=== PATIENT | female | born 1985 | race Caucasian/White ===

== ENCOUNTER 2016-06-20 18:25 | Emergency (ER) | payer SELFPAY ==
[~2016-06-20] VITALS: Ht 154.9 cm; Wt 68.0 kg
[~2016-06-20 18:25] MED LIST: ZOFR4TAB3 SL
[2016-06-20 18:53] VITALS: BP 133/80; PULSE 99; RESP 16; TEMP 98.4; O2SAT 98
[2016-06-20] MEDS ORDERED: SODIUM CHLORIDE 0.9% FLUSH 5 ML FLUSH IVF PRN (19:30)
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
[2016-06-20 20:00] LABS: AUTOMATED NEUTROPHIL # 5.4 TH/MM3 (1.8-7.7); BASOPHIL # 0.1 TH/MM3 (0-0.2); EOSINOPHIL # 0.2 TH/MM3 (0-0.4); HEMATOCRIT 38.2 % (35.0-46.0); HEMO FLAGS DIFF FINAL; LYMPH % 32.8 % (9.0-44.0); MEAN CELL VOLUME 84.5 FL (80.0-100.0); MEAN CORPUSCULAR HEMOGLOBIN 29.3 PG (27.0-34.0); MEAN CORPUSCULAR HGB CONC 34.6 % (32.0-36.0); MONO % 5.9 % (0.0-8.0); NEUT % 58.3 % (16.0-70.0); PLATELET COUNT 233 TH/MM3 (150-450); RED BLOOD COUNT 4.52 MIL/MM3 (4.00-5.30); WHITE BLOOD COUNT 9.2 TH/MM3 (4.0-11.0)
[2016-06-20 20:07] LABS: BACTERIA, URINE MOD /hpf; BLOOD, URINE NEG (NEG); COMMENT (UR) CULTURE INDICATED; CULTURE IF INDICATED CULTURE INDICATED; GLUCOSE,URINE NEG (NEG); HYALINE CAST, URINE 1 /lpf (RARE); KETONE, URINE TRACE mg/dL (NEG); MUCUS URINE MOD /lpf (OCC); NITRITE,URINE POS (NEG); SQUAMOUS EPITHELIAL CELL URINE 2 /hpf (0-5); URINE COLOR YELLOW (YELLW/STRAW)
[2016-06-20 20:08] LABS: AMPHETAMINE, URINE NEG (NEG); BARBITURATES, URINE NEG (NEG); COCAINE, URINE POS (NEG)
[2016-06-20 20:23] LABS: ANION GAP 9 MEQ/L (5-15)
[2016-06-20 20:28] LABS: ALKALINE PHOSPHATASE 83 U/L (45-117); ALT (GPT) 19 U/L (10-53); AST (GOT) 16 U/L (15-37); BETA HCG QUANT LESS THAN 1 MIU/ML (0-5); BICARBONATE 27.8 MEQ/L (21.0-32.0); BLOOD UREA NITROGEN 9 MG/DL (7-18); CHLORIDE 102 MEQ/L (98-107); GLOMERULAR FILTRATION RATE 97 ML/MIN (>89); POTASSIUM 3.6 MEQ/L (3.5-5.1); SODIUM (NA) 139 MEQ/L (136-145); TOTAL BILIRUBIN ADULT 0.6 MG/DL (0.2-1.0)
[2016-06-20 20:34] LABS: ACETAMINOPHEN LESS THAN 2.0 MCG/ML (10.0-30.0)
== END 2016-06-21 00:46 | disposition left against medical advice (07) ==
LOC: NEPC 18:25
DX: T40.5X1A Poisoning by cocaine, accidental (unintentional), initial encounter (principal); T42.4X1A Poisoning by benzodiazepines, accidental (unintentional), initial encounter; R11.0 Nausea; N39.0 Urinary tract infection, site not specified; B96.20 Unspecified Escherichia coli [E. coli] as the cause of diseases classified elsewhere; Y92.89 Other specified places as the place of occurrence of the external cause; Y93.89 Activity, other specified
CPT/HCPCS: 80053; 80307; 80320; 80329; 81001; 84702; 85025; 87077; 87086; 87186; 99284; G0480

== ENCOUNTER 2016-07-01 19:52 | Inpatient (IN) | payer SELFPAY ==
[~2016-07-01] VITALS: Ht 154.9 cm; Wt 75.1 kg
[2016-07-01 19:57] VITALS: BP 158/87; PULSE 125; TEMP 99.8; O2SAT 96
[2016-07-01] MEDS ORDERED: METH10TA PO (21:31)
[2016-07-01] MEDS ORDERED: SODIUM CHLOR 0.9% 1000 ML INJ 1,000 ML IV ONE ×2 (21:55)
[2016-07-01] MEDS ORDERED: CEFEPIME INJ 2,000 MG in SODIUM CHLORIDE 0.9% INJ 100 ML IV STA (21:55)
[2016-07-01] MEDS ORDERED: SODIUM CHLOR 0.9% 1000 ML INJ 100 ML IV ONE (21:55)
[2016-07-01] MEDS ORDERED: VANCOMYCIN INJ 1,000 MG in SODIUM CHLOR 0.9% 250 ML INJ 250 ML IV STA (21:55)
[2016-07-01] MEDS ORDERED: ACETAMINOPHEN 325 MG TAB PO ONE (22:00)
--- NOTE | 2016-07-01 22:08 | PD ---
HPI Chief Complaint: Abdominal Pain Time Seen by Provider: 21:43 Travel History International Travel<30 days: No Contact w/Intl Traveler<30days: No Traveled to known affect area: No History of Present Illness HPI The patient is a 31 year old female who presents to the [facility] emergency department with a history of abdominal pain that she reports began earlier today. The patient reports that the pain as a sharp sensation that comes and goes and radiates to the right side of her back. She reports that she 's had a subjective fever today. She reports that she then began to have nausea and vomiting 10. She denies having any diarrhea. She reports that her last bowel movement was approximately 2 days ago. She denies having any blood in her stool or black or tarry stools. The patient reports that the abdominal pain is in the right upper quadrant of the abdomen. She reports having a diminished appetite today. She denies having any food intolerances prior to today. She reports that she has a bitemporal throbbing headache and a strong odor to her urine. She reports that she's had urinary frequency and urgency, however no dysuria. She reports that she's had a productive cough, however she cannot quantify exactly how long this is been going on. She does report a history of smoking and smokes approximately half a pack of cigarettes per day. The patient has a history of IV drug use. She last used on June 20, 2016 when she was evaluated in the hospital related to an accidental overdose. The patient reports that over the last week she has been on methadone at 20 mg by mouth every morning. She denies having any chest pain, chest pressure, or shortness of breath. She denies having any central back pain. The patient denies any neck pain, one-sided weakness, slurred speech, dizziness, facial droop, difficulty with word finding ability, or vision changes. LMP: May [facility] Past Medical History Narrative Medical The patient's past medical history is significant for hepatitis C, history of IV drug use Diminished Hearing: No Immunizations Current: Yes ?: Not LMP: UNKNOWN : 1 Para: 1 Past Surgical History Narrative Surgical The patient's past surgical history is significant for a , right hand surgery. Section: Yes (X1) Gynecologic Surgery: Yes () Other Surgery: Yes (HAND) Social History Alcohol Use: No (IN A RECOVERY PROGRAN) Tobacco Use: Yes (1/2 PPD) Substance Use: Yes (HX OF DILAUDID IV and herroin) Allergies-Medications (Allergen,Severity, Reaction): Coded Allergies: Amoxil (Verified Allergy, Severe, Hives, 07/01/16) Penicillin (Verified Allergy, Severe, 07/01/16) Reported Meds & Prescriptions Reported Meds & Active Scripts Active Reported Methadone (Methadone HCl) 10 Mg Tab 20 Mg PO DAILY Review of Systems Except as stated in HPI: all other systems reviewed are Neg General / Constitutional: Positive: Fever Eyes: No: Visual changes HENT: Positive: Headaches, Rhinorrhea, Congestion, No: Neck Stiffness, Neck Pain Cardiovascular: No: Chest Pain or Discomfort, Dyspnea on exertion Respiratory: Positive: Cough, No: Shortness of Breath Gastrointestinal: Positive: Nausea, Vomiting, Abdominal Pain, Loss of Appetite , No: Diarrhea, Hematemesis, Hematochezia, Constipation, Changes in Bowel Habits, Indigestion Genitourinary: Positive: Urgency, Frequency, Flank Pain (right flank pain), No : Dysuria Musculoskeletal: Positive: Myalgias, No: Pain Skin: No Rash Neurologic: Positive: Weakness (generalized weakness), No: Focal Abnormalities , Coordination Problem, Change in Mentation, Slurred Speech, Sensory Disturbance Psychiatric: No: Depression Endocrine: No: Polydipsia Hematologic/Lymphatic: No: Easy Bruising Physical Exam Narrative General: The patient is a well-developed well-nourished female in no acute distress. Head and Neck exam: Head is normocephalic atraumatic. Eyes: EOMI, pupils are equal round and reactive to light. Nose: Midline septum with pink mucous membranes Mouth: Dentition unremarkable. Moist mucus membranes. Posterior oropharynx is not erythematous. No tonsillar hypertrophy. Uvula midline. Airway patent. Neck: No palpable lymphadenopathy. No nuchal rigidity. No thyromegaly. Cardiovascular: Sinus tachycardia in the low 100s without murmurs, gallops, or rubs. No pulse deficit to the extremities and simultaneous auscultation and palpation of her radial artery. Lungs: Clear to auscultation bilaterally. No wheezes, rhonchi, or rales. Abdomen: Soft, without tenderness to palpation in all 4 quadrants of the abdomen. No guarding, rebound, or rigidity. Negative Rattan sign. Extremities: No clubbing, cyanosis, or edema. 2+ pulses in all 4 extremities. Back: No spinous process tenderness to palpation. No costovertebral angle tenderness to palpation. Neurologic Exam: Cranial nerves 2-12 were intact on exam. Strength is 5/5 in all 4 extremities. No sensory deficits noted. No dysdiadochokinesis. Good finger to nose and Heel to [place] bilaterally. Skin Exam: No rash noted. Intact skin that is warm and dry. Data Data Last Documented VS Vital Signs Date Time Temp Pulse Resp B/P Pulse Ox O2 Delivery O2 Flow Rate FiO2 07/01/16 23:14 96 Room Air 07/01/16 23:13 102 18 124/78 07/01/16 19:57 99.8 Orders Electrocardiogram (07/01/16 21:55) Complete Blood Count With Diff (07/01/16 21:55) Comprehensive Metabolic Panel (07/01/16 21:55) Prothrombin Time / Inr (Pt) (07/01/16 21:55) Act Partial Throm Time (Ptt) (07/01/16 21:55) Lactic Acid Sepsis Protocol (07/01/16 21:55) Magnesium (Mg) (07/01/16 21:55) Lipase (07/01/16 21:55) Ckmb (Isoenzyme) Profile (07/01/16 21:55) Troponin I (07/01/16 21:55) Urinalysis - C+S If Indicated (07/01/16 21:55) Blood Culture (07/01/16 21:55) Chest, Single Ap (07/01/16 21:55) Blood Glucose (07/01/16 21:55) Ecg Monitoring (07/01/16 21:55) Iv Access Insert/Monitor (07/01/16 21:55) Oximetry (07/01/16 21:55) Oxygen Administration (07/01/16 21:55) Acetaminophen (Tylenol) (07/01/16 22:00) Vancomycin Inj (Vancomycin Inj) (07/01/16 21:55) Cefepime Inj (Maxipime Inj) (07/01/16 21:55) Sodium Chlor 0.9% 1000 Ml Inj (Ns 1000 M (07/01/16 21:55) Sodium Chlor 0.9% 1000 Ml Inj (Ns 1000 M (07/01/16 21:55) Sodium Chlor 0.9% 1000 Ml Inj (Ns 1000 M (07/01/16 21:55) B-Type Natriuretic Peptide (07/01/16 21:55) Westergren Sedimentation Rate (07/01/16 21:55) Ed Urine Pregnancytest Poc (07/01/16 21:55) Ct Abd/Pel W/O Iv Contrast (07/01/16 21:59) Urine Culture (07/01/16 22:24) Admit Order (Ed Use Only) (07/01/16 23:35) Labs Laboratory Tests Test 07/01/16 22:24 White Blood Count 23.3 TH/MM3 Red Blood Count 4.42 MIL/MM3 Hemoglobin 13.0 GM/DL Hematocrit 37.3 % Mean Corpuscular Volume 84.4 FL Mean Corpuscular Hemoglobin 29.3 PG Mean Corpuscular Hemoglobin 34.8 % Concent Red Cell Distribution Width 14.3 % Platelet Count 207 TH/MM3 Mean Platelet Volume 8.2 FL Neutrophils (%) (Auto) % Lymphocytes (%) (Auto) % Monocytes (%) (Auto) % Eosinophils (%) (Auto) % Basophils (%) (Auto) % Neutrophils # (Auto) TH/MM3 Lymphocytes # (Auto) TH/MM3 Monocytes # (Auto) TH/MM3 Eosinophils # (Auto) TH/MM3 Basophils # (Auto) TH/MM3 CBC Comment AUTO DIFF Differential Total Cells 100 Counted Neutrophils % (Manual) 74 % Band Neutrophils % 15 % Lymphocytes % 9 % Monocytes % 2 % Neutrophils # (Manual) 20.7 TH/MM3 Differential Comment FINAL DIFF MANUAL Atypical Lymphocytes % Platelet Estimate NORMAL Platelet Morphology Comment NORMAL Red Cell Morphology Comment NORMAL Erythrocyte Sedimentation Rate 18 mm/hr Prothrombin Time 12.3 SEC Prothromb Time International 1.1 RATIO Ratio Activated Partial 28.4 SEC Thromboplast Time Urine Color YELLOW Urine Turbidity CLEAR Urine pH 6.0 Urine Specific [place] 1.007 Urine Protein TRACE mg/dL Urine Glucose (UA) NEG mg/dL Urine Ketones 10 mg/dL Urine Occult Blood NEG Urine Nitrite POS Urine Bilirubin NEG Urine Urobilinogen LESS THAN 2.0 MG/DL Urine Leukocyte Esterase TRACE Urine RBC 1 /hpf Urine WBC 1 /hpf Urine Squamous Epithelial 1 /hpf Cells Urine Bacteria MANY /hpf Microscopic Urinalysis Comment CATH-CULTURE IND Sodium Level 134 MEQ/L Potassium Level 3.9 MEQ/L Chloride Level 99 MEQ/L Carbon Dioxide Level 25.1 MEQ/L Anion Gap 10 MEQ/L Blood Urea Nitrogen 10 MG/DL Creatinine 0.70 MG/DL Estimat Glomerular Filtration 98 ML/MIN Rate Random Glucose 123 MG/DL Lactic Acid Level 0.7 mmol/L Calcium Level 9.0 MG/DL Magnesium Level 1.8 MG/DL Total Bilirubin 1.8 MG/DL Aspartate Amino Transf 32 U/L (AST/SGOT) Alanine Aminotransferase 42 U/L (ALT/SGPT) Alkaline Phosphatase 77 U/L Total Creatine Kinase 82 U/L Troponin I LESS THAN 0.02 NG/ML B-Type Natriuretic Peptide 44 PG/ML Total Protein 7.7 GM/DL Albumin 3.6 GM/DL Lipase 48 U/L [facility] Medical Decision Making Medical Screen Exam Complete: Yes Emergency Medical Condition: Yes Medical Record Reviewed: Yes Interpretation(s) Last Impressions Abdomen/Pelvis CT 07/01/162158 Signed Impressions: Service Date/Time: Friday, July 01, 2016 23:27 - CONCLUSION: Negative exam. No acute intraperitoneal or pelvic process to explain current clinical symptoms. Pavel Ray MD Chest X-Ray [id number]/[id number] Signed Impressions: Service Date/Time: Friday, July 01, 2016 23:01 - CONCLUSION: No acute cardiopulmonary process. No pneumoperitoneum. Pavel Ray MD Differential Diagnosis Urinary tract infection, versus kidney stone, versus colitis, versus pneumonia, versus sepsis of undetermined origin. Narrative Course During the course of the patients emergency department visit, the patients history, examination, and differential diagnosis were reviewed with the patient. The patient had IV access obtained and blood work sent for analysis. The patient was placed on a graphic manager with oximetry and blood pressure monitoring. An EKG was done on arrival. The patient's EKG shows a sinus tachycardia rate of 104, incomplete right bundle branch block, no acute ST segment elevation is noted, T waves are inverted in V1. The patient was provided a 30 mL per KG IV fluid bolus, cefepime 2 g IV 1, vancomycin 1 g IV, acetaminophen 650 by mouth 1 for pain and fever. The patients laboratory studies were reviewed and remarkable for white count of 23.3, hemoglobin 13, platelets 207 with 74 neutrophils, bands 15, CMP is remarkable for sodium of 134, glucose 123, total bilirubin 1.8, initial set of cardiac enzymes are negative, BNP is 44, lipase 48, lactic acid is 0.7, sedimentation rate is 18, urinalysis shows 10 ketones positive nitrite trace leukocyte Estrace, many bacteria. PT 12.3, PTT 28.4. Radiology studies were reviewed and remarkable for a chest x-ray that shows no acute cardiopulmonary abnormality, CT scan of the abdomen and pelvis shows no acute intra-abdominal process. The patients results were discussed with the patient, including the plan of care. I explained that further testing and/ or monitoring is indicated based on the patients history, examination, and/ or laboratory findings. Therefore, I recommended admission for additional evaluation. The patient expressed understanding and was agreeable with this plan. The patient was admitted to the hospital in stable condition and [facility] Sepsis Criteria SIRS Criteria (2 or more): Heart rate over 90, WBC > 79599, < 4000 or > 10% bands Sepsis Criteria (SIRS+source): Infect source susp/known Criteria Outcome: Meets SIRS criteria, Meets sepsis criteria Physician Communication Physician Communication The patient's case was discussed with Dr. Fountain who did agree to admit the patient for further evaluation and treatment at this time. Diagnosis Primary Impression: Sepsis Qualified Code: A41.9 - Sepsis, due to unspecified organism Additional Impressions: Urinary tract infection Qualified Code: N39.0 - Urinary tract infection without hematuria, site unspecified Intravenous drug user Admitting Information Admitting Physician Requests: Admit Jessica Lucio MD Jul 01, 2016 22:08
[2016-07-01 22:55] LABS: HEMATOCRIT 37.3 % (35.0-46.0); MEAN CELL VOLUME 84.4 FL (80.0-100.0); MEAN CORPUSCULAR HEMOGLOBIN 29.3 PG (27.0-34.0); MEAN CORPUSCULAR HGB CONC 34.8 % (32.0-36.0); PLATELET COUNT 207 TH/MM3 (150-450); RED BLOOD COUNT 4.42 MIL/MM3 (4.00-5.30); RED CELL DISTRIBUTION WIDTH 14.3 % (11.6-17.2); WHITE BLOOD COUNT 23.3 TH/MM3 (4.0-11.0)
[2016-07-01 22:56] LABS: HEMO FLAGS AUTO DIFF
[2016-07-01 22:57] LABS: BLOOD, URINE NEG (NEG); GLUCOSE,URINE NEG (NEG); KETONE, URINE 10 mg/dL (NEG); NITRITE,URINE POS (NEG); SQUAMOUS EPITHELIAL CELL URINE 1 /hpf (0-5); URINE COLOR YELLOW (YELLW/STRAW)
[2016-07-01 22:58] LABS: BACTERIA, URINE MANY /hpf
[2016-07-01 23:00] LABS: COMMENT (UR) CATH-CULTURE IND; CULTURE IF INDICATED CATH CULTURE IND
[2016-07-01 23:02] LABS: APTT (PATIENT) 28.4 SEC (24.3-30.1); INTERNATIONAL NORMALIZED RATIO 1.1 RATIO; PROTHROMBIN TIME - PATIENT 12.3 SEC (9.8-11.6)
--- NOTE | 2016-07-01 23:11 | RADRPT ---
EXAM DATE/TIME: 07/01/2016 23:01 [facility] COMPARISON: No previous studies available for comparison. INDICATIONS : Free air. MEDICAL HISTORY : None. SURGICAL HISTORY : None. ENCOUNTER: Initial ACUITY: 1 day PAIN SCORE: 5/10 LOCATION: Bilateral chest FINDINGS: A single view of the chest demonstrates the lungs to be symmetrically aerated without evidence of mas s, infiltrate or effusion. The cardiomediastinal contours are unremarkable. Osseous structures are intact. CONCLUSION: No acute cardiopulmonary process. No pneumoperitoneum. Pavel Ray MD on July 01, 2016 at 23:09 Board Certified Radiologist. This report was verified electronically.
[2016-07-01 23:13] VITALS: BP 124/78; PULSE 102; RESP 18; O2SAT 96
[2016-07-01 23:14] VITALS: O2SAT 97
[2016-07-01 23:19] LABS: ALT (GPT) 42 U/L (10-53); ANION GAP 10 MEQ/L (5-15); AST (GOT) 32 U/L (15-37); BICARBONATE 25.1 MEQ/L (21.0-32.0); BLOOD UREA NITROGEN 10 MG/DL (7-18); CHLORIDE 99 MEQ/L (98-107); GLOMERULAR FILTRATION RATE 98 ML/MIN (>89); MAGNESIUM 1.8 MG/DL (1.5-2.5); POTASSIUM 3.9 MEQ/L (3.5-5.1); SODIUM (NA) 134 MEQ/L (136-145)
[2016-07-01 23:23] LABS: ALKALINE PHOSPHATASE 77 U/L (45-117); TOTAL BILIRUBIN ADULT 1.8 MG/DL (0.2-1.0)
[2016-07-01 23:25] LABS: BANDS 15 % (0-6); NEUTROPHIL # MANUAL DIFF 20.7 TH/MM3 (1.8-7.7); POLYS (SEG NEUTROPHILS) 74 % (16-70); WBC DIFF SAMPLE 100
[2016-07-01 23:26] LABS: PLATELET ESTIMATE SMEAR NORMAL (NORMAL); PLATELET MORPHOLOGY NORMAL (NORMAL); SCAN/DIFF FINAL DIFF MANUAL
[2016-07-01 23:41] LABS: CREATINE KINASE 82 U/L (26-192)
--- NOTE | 2016-07-01 23:53 | RADRPT ---
EXAM DATE/TIME: 07/01/2016 23:27 [facility] COMPARISON: No previous studies available for comparison. INDICATIONS : Right flank pain, evaluate for renal stone. ORAL CONTRAST: No oral contrast ingested. RADIATION DOSE: 10.14 CTDIvol (mGy) MEDICAL HISTORY : Hepatitis C. SURGICAL HISTORY : section. ENCOUNTER: Initial ACUITY: 1 day PAIN SCALE: 6/10 LOCATION: Right flank TECHNIQUE: Volumetric scanning of the abdomen and pelvis was performed. Using automated exposure control and ad justment of the mA and/or kV according to patient size, radiation dose was kept as low as reasonably achievable to obtain optimal diagnostic quality images. FINDINGS: LOWER LUNGS: The visualized lower lungs are clear. LIVER: Homogeneous density without lesion. There is no dilation of the biliary tree. No calcified gallston es. SPLEEN: Normal size without lesion. PANCREAS: Within normal limits. KIDNEYS: Normal in size and shape. There is no mass, stone, or hydronephrosis. ADRENAL GLANDS: Within normal limits. VASCULAR: There is no aortic aneurysm. BOWEL/MESENTERY: The stomach, small bowel, and colon demonstrate no acute abnormality. There is no free intraperitone al air or fluid. ABDOMINAL WALL: Within normal limits. RETROPERITONEUM: There is no lymphadenopathy. BLADDER: No wall thickening or mass. REPRODUCTIVE: Within normal limits. Small right ovarian cyst. The appendix is adjacent to the right adnexa but is r adiographically normal INGUINAL: There is no lymphadenopathy or hernia. MUSCULOSKELETAL: Within normal limits for patient age. CONCLUSION: Negative exam. No acute intraperitoneal or pelvic process to explain current clinical symptoms. Pavel Ray MD on July 01, 2016 at 23:48 Board Certified Radiologist. This report was verified electronically.
[2016-07-02] VITALS (8 sets, daily range): BP systolic 120–157; BP diastolic 64–88; PULSE 88–116; RESP 16–18; TEMP 98–99; O2SAT 95–98
[2016-07-02] MEDS ORDERED: NALOXONE HCL 0.4 MG/ML AMP IV PRN
[2016-07-02] MEDS ORDERED: SODIUM CHLORIDE 0.9% FLUSH 5 ML FLUSH FLUSH PRN
[2016-07-02] MEDS: CIPROFLOXACIN 400 MG PREMIX 200 ML IV SCH ×2 (02:26→12:00)
--- NOTE | 2016-07-02 03:52 | HHI.HP ---
HPI Service [facility] Primary Care Physician No Primary Care Physician Admission Diagnosis Sepsis, UTI Diagnoses: (1) Urinary tract infection (2) Intravenous drug user (3) Hyponatremia Chief Complaint: abdomen and back pain Travel History International Travel<30 Days: No Contact w/Intl Traveler <30 Da: No Traveled to Known Affected Are: No History of Present Illness Ms. Hernández is a 31 year-old female with a history of hepatitis C and IVDA who presented to the ER on 07/01/16 with abdominal pain, UTI symptoms, and subjective fever with nausea and vomiting x 10 episodes. Chest x-ray is negative; CT scan of abdomen and pelvis shows no acute intra-abdominal process. The patient is seen in the emergency room. She states that over the past couple of days she's been having right-sided stomach and back pain and malodorous urine accompanied by chills, nausea, and vomiting. Pain is severe. Emesis is bilious in quality. Denies hematemesis or coffee round emesis, diarrhea, shortness of breath, cough, chest pain, syncope, dizziness. Denies any history of diabetes mellitus, coronary artery disease, heart disease, respiratory problems, liver problems, or kidney problems. Reports recent unintentional overdose on heroin when laced with fentanyl. Has been taking methadone since that time and is currently taking methadone 20 mg by mouth daily which she purchases "on the street" to avoid withdrawal symptoms. She is trying to get off heroin. She is unable to afford to attend the methadone clinic. . Review of Systems Except as stated in HPI: all other systems reviewed are Neg Past Family Social History Past Medical History Hepatitis C IV drug abuse . Past Surgical History Right hand surgery secondary to infection . Reported Medications Reported Meds & Active Scripts Active Reported Methadone (Methadone HCl) 10 Mg Tab 20 Mg PO DAILY Allergies: Coded Allergies: Amoxil (Verified Allergy, Severe, Hives, 07/02/16) Penicillin (Verified Allergy, Severe, 07/02/16) Active Ordered Medications Current Medications Acetaminophen 650 mg 650 mg ONCE ONCE PO Last administered on 07/01/16t 22:00; Start 07/01/16 at 22:00; Stop 07/01/16 at 22:01; Status DC Vancomycin HCl 1000 mg/Sodium Chloride 250 ml @ 250 mls/hr ONCE STAT IV Last administered on 07/01/16 21:55; Start 07/01/16 at 21:55; Stop 07/01/16 at 22:54; Status DC Cefepime HCl 2000 mg/Sodium Chloride 100 ml @ 200 mls/hr ONCE STAT IV Last administered on 07/01/16 21:55; Start 07/01/16 at 21:55; Stop 07/01/16 at 22:24; Status DC Sodium Chloride 1,000 ml @ 1,000 mls/hr Q1H ONCE IV Last administered on 21:55; Start 07/01/16 at 21:55; Stop 07/01/16 at 22:54; Status DC Sodium Chloride 1,000 ml @ 1,000 mls/hr Q1H ONCE IV Last administered on 21:55; Start 07/01/16 at 21:55; Stop 07/01/16 at 22:54; Status DC Sodium Chloride (NS 1000 ml Inj) 100 ml @ 1,000 mls/hr Q6M ONCE IV Last administered on 07/01/16 21:55; Start 07/01/16 at 21:55; Stop 07/01/16 at 22:00; Status DC IV Flush (NS Flush) 2 ml UNSCH PRN FLUSH FLUSH AFTER USING IV ACCESS; Start 07/02/16 at 00:00 IV Flush (NS Flush) 2 ml BID FLUSH ; Start 07/02/16 at 09:00 Enoxaparin Sodium (Lovenox Inj) 40 mg Q24H SQ ; Start 07/02/16 at 09:00 Naloxone HCl 0.4 mg 0.4 mg UNSCH PRN IV SEE LABEL COMMENTS; Start 07/02/16 at 00 :00 Ciprofloxacin/ Dextrose (Cipro 400 Mg Premix) 200 ml @ 200 mls/hr Q12H IV Last administered on 07/02/16 02:26; Start 07/02/16 at 00:00 Family History denies any significant family medical history . Social History 6-7 cigs/daily no alcohol opioids only Physical Exam Vital Signs Vital Signs Date Time Temp Pulse Resp B/P Pulse Ox O2 Delivery O2 Flow Rate FiO2 3/8/17 02:48 96 16 124/75 97 Room Air 07/02/16 01:41 98 16 120/64 96 Room Air 07/01/16 23:14 96 Room Air 07/01/16 23:14 97 Room Air 07/01/16 23:13 102 18 124/78 96 Room Air 07/01/16 19:57 99.8 125 158/87 96 Room Air Physical Exam GENERAL: This is a well-nourished, well-developed patient, in no apparent distress. SKIN: No rashes, ecchymoses or lesions. Cool and dry. HEAD: Atraumatic. Normocephalic. EYES: No scleral icterus. No injection or drainage. ENT: Nose without bleeding, purulent drainage. NECK: Trachea midline. No JVD or lymphadenopathy. CARDIOVASCULAR: Regular rate and rhythm without murmurs, gallops, or rubs. RESPIRATORY: Clear to auscultation. Breath sounds equal bilaterally. No wheezes , rales, or rhonchi. GASTROINTESTINAL: Abdomen soft, lower abdomen tenderness, nondistended. No guarding. : suprapubic tenderness. MUSCULOSKELETAL: Extremities without clubbing, cyanosis, or edema. No calf tenderness. NEUROLOGICAL: Awake and alert. Motor and sensory grossly within normal limits. Normal speech. . . Laboratory Laboratory Tests Test 07/01/16 22:24 White Blood Count 23.3 Red Blood Count 4.42 Hemoglobin 13.0 Hematocrit 37.3 Mean Corpuscular Volume 84.4 Mean Corpuscular Hemoglobin 29.3 Mean Corpuscular Hemoglobin 34.8 Concent Red Cell Distribution Width 14.3 Platelet Count 207 Mean Platelet Volume 8.2 Neutrophils (%) (Auto) Lymphocytes (%) (Auto) Monocytes (%) (Auto) Eosinophils (%) (Auto) Basophils (%) (Auto) Neutrophils # (Auto) Lymphocytes # (Auto) Monocytes # (Auto) Eosinophils # (Auto) Basophils # (Auto) CBC Comment AUTO DIFF Differential Total Cells 100 Counted Neutrophils % (Manual) 74 Band Neutrophils % 15 Lymphocytes % 9 Monocytes % 2 Neutrophils # (Manual) 20.7 Differential Comment FINAL DIFF MANUAL Atypical Lymphocytes Platelet Estimate NORMAL Platelet Morphology Comment NORMAL Red Cell Morphology Comment NORMAL Erythrocyte Sedimentation Rate 18 Prothrombin Time 12.3 Prothromb Time International 1.1 Ratio Activated Partial 28.4 Thromboplast Time Urine Color YELLOW Urine Turbidity CLEAR Urine pH 6.0 Urine Specific [place] 1.007 Urine Protein TRACE Urine Glucose (UA) NEG Urine Ketones 10 Urine Occult Blood NEG Urine Nitrite POS Urine Bilirubin NEG Urine Urobilinogen LESS THAN 2.0 Urine Leukocyte Esterase TRACE Urine RBC 1 Urine WBC 1 Urine Squamous Epithelial 1 Cells Urine Bacteria MANY Microscopic Urinalysis Comment CATH-CULTURE IND Sodium Level 134 Potassium Level 3.9 Chloride Level 99 Carbon Dioxide Level 25.1 Anion Gap 10 Blood Urea Nitrogen 10 Creatinine 0.70 Estimat Glomerular Filtration 98 Rate Random Glucose 123 Lactic Acid Level 0.7 Calcium Level 9.0 Magnesium Level 1.8 Total Bilirubin 1.8 Aspartate Amino Transf 32 (AST/SGOT) Alanine Aminotransferase 42 (ALT/SGPT) Alkaline Phosphatase 77 Total Creatine Kinase 82 Troponin I LESS THAN 0.02 B-Type Natriuretic Peptide 44 Total Protein 7.7 Albumin 3.6 Lipase 48 Date/Time Procedure Status Source Growth 07/01/16 22:30 Aerobic Blood Culture Received Blood Peripheral Pending 07/01/16 22:30 Anaerobic Blood Culture Received Blood Peripheral Pending 07/01/16 22:24 Urine Culture Received Urine Catheterized Urine Pending Result Diagram: 07/01/16222307/01/162223 Imaging Last Impressions Abdomen/Pelvis CT 07/01/162158 Signed Impressions: Service Date/Time: Friday, July 01, 2016 23:27 - CONCLUSION: Negative exam. No acute intraperitoneal or pelvic process to explain current clinical symptoms. Pavel Ray MD Chest X-Ray 07/01/162154 Signed Impressions: Service Date/Time: Friday, July 01, 2016 23:01 - CONCLUSION: No acute cardiopulmonary process. No pneumoperitoneum. Pavel Ray MD Assessment and Plan Problem List: (1) Urinary tract infection ICD Code: N39.0 Status: Acute (2) Intravenous drug user ICD Code: F19.90 Status: Acute (3) Hyponatremia ICD Code: E87.1 Status: Acute Assessment and Plan Urinary tract infection in patient with a history of IVDA - Temperature 99.8, pulse 125 - WBC 23.3 with a left shift - UA with positive nitrites, trace leukocyte esterase, and many bacteria - Blood cultures pending and urine culture pending- follow results of cultures and adjust treatments as indicated - Ciprofloxacin 400 mg IV every 12 hours Mild hyponatremia - Initial sodium level 134 - Normal saline IV x 3 liters bolus in ER - Recheck BMP in a.m. and follow results and sodium level IVDA - attempting to quit - Methadone 20 mg daily - encouraged to quit abusing drugs DVT prophylaxis - Lovenox 40 mg subcutaneous every 24 hours Written by Lizbeth Urrutia, acting as scribe for Dr. Fountain on 07/02/16 at 03:52. All or portions of this note were transcribed by scribe [Lizbeth Urrutia]. I, Dr. Cheryle Fountain personally performed the history, physical exam, and medical decision making; and confirmed the accuracy of the information in the transcribed note. Authenticated by Dr. Cheryle Fountain on 07/02/16 at 0352 . Discussed Condition With ER physician, RN, and patient . Physician Certification 2 Midnight Certification Type: Admission for Inpatient Services Order for Inpatient Services The services are ordered in accordance with Medicare regulations or non- Medicare payer requirements, as applicable. In the case of services not specified as inpatient-only, they are appropriately provided as inpatient services in accordance with the 2-midnight benchmark. Estimated LOS (days): 3 days is the estimated time the patient will need to remain in the hospital, assuming treatment plan goals are met and no additional complications. Post-Hospital Plan: Not yet determined Problem Qualifiers (1) Urinary tract infection: Qualified Code: N39.0 - Urinary tract infection without hematuria, site unspecified Lizbeth Urrutia Jul 02, 2016 03:52 Cheryle Fountain MD Jul 02, 2016 07:00
[2016-07-02 04:13] LABS: AUTOMATED NEUTROPHIL # 14.2 TH/MM3 (1.8-7.7); BASOPHIL # 0.1 TH/MM3 (0-0.2); BASOPHIL % 0.6 % (0.0-2.0); EOSINOPHIL % 0.1 % (0.0-4.0); HEMATOCRIT 36.2 % (35.0-46.0); HEMO FLAGS DIFF FINAL; LYMPH % 10.5 % (9.0-44.0); LYMPHOCYTE # 1.8 TH/MM3 (1.0-4.8); MEAN CELL VOLUME 86.2 FL (80.0-100.0); MEAN CORPUSCULAR HEMOGLOBIN 28.7 PG (27.0-34.0); MEAN CORPUSCULAR HGB CONC 33.3 % (32.0-36.0); MONO % 4.9 % (0.0-8.0); NEUT % 83.9 % (16.0-70.0); PLATELET COUNT 161 TH/MM3 (150-450); RED CELL DISTRIBUTION WIDTH 14.6 % (11.6-17.2); WHITE BLOOD COUNT 16.9 TH/MM3 (4.0-11.0)
[2016-07-02 04:43] LABS: BICARBONATE 23.8 MEQ/L (21.0-32.0); POTASSIUM 3.7 MEQ/L (3.5-5.1)
[2016-07-02] MEDS: ENOXAPARIN SODIUM 40 MG/0.4 ML SYRINGE SQ SCH (09:00)
[2016-07-02] MEDS: SODIUM CHLORIDE 0.9% FLUSH 5 ML FLUSH FLUSH SCH ×2 (09:50→22:19)
[2016-07-02] MEDS: METHADONE HCL 10 MG TAB PO SCH (09:50)
--- NOTE | 2016-07-02 18:33 | EKG ---
Date Performed: 07/02/2016 Time Performed: 00:02:12 PTAGE: 31 years EKG: SINUS TACHYCARDIA INCOMPLETE RIGHT BUNDLE BRANCH BLOCK ABNORMAL RHYTHM ECG NO PREVIOUS TRACING DOCTOR: Zackery Avila Interpretating Date/Time 07/02/2016 18:32:23
[2016-07-03] VITALS (8 sets, daily range): BP systolic 111–128; BP diastolic 66–90; PULSE 75–112; RESP 15–18; TEMP 96.3–100.6; O2SAT 92–97
[2016-07-03] MEDS: CIPROFLOXACIN 400 MG PREMIX 200 ML IV SCH ×2 (00:17→10:44)
[2016-07-03] MEDS: ACETAMINOPHEN 325 MG TAB PO PRN ×4 (01:22→22:18)
[2016-07-03] MEDS: METHADONE HCL 10 MG TAB PO SCH (08:50)
[2016-07-03] MEDS: ENOXAPARIN SODIUM 40 MG/0.4 ML SYRINGE SQ SCH (08:50)
[2016-07-03] MEDS: SODIUM CHLORIDE 0.9% FLUSH 5 ML FLUSH FLUSH SCH ×2 (08:51→22:19)
--- NOTE | 2016-07-03 10:39 | HHI.PR ---
Subjective Remarks T max 100.6 denies any urinary symptoms no vaginal discharge Objective Vitals Vital Signs Date Time Temp Pulse Resp B/P Pulse Ox O2 Delivery O2 Flow Rate FiO2 07/03/16 08:42 99.3 92 16 115/73 97 07/03/16 08:00 88 07/03/16 04:00 98.9 75 18 111/66 95 07/03/16 04:00 98.9 75 15 111/66 92 07/03/16 00:00 100.6 112 18 111/74 93 07/02/16 23:00 116 07/02/16 20:00 98.0 111 18 134/74 95 07/02/16 15:10 99.0 91 18 144/76 95 07/02/16 13:45 98.9 88 18 122/77 98 Room Air I/O 07/02/16 07/02/16 07/02/16 07/03/16 07/03/16 07/03/16 07:00 15:00 23:00 07:00 15:00 23:00 Intake Total 365 ml Balance 365 ml Intake Oral 365 ml # Voids 4 # Bowel Movements 0 Result Diagram: 07/02/16 0340 07/02/16 0340 Imaging Last Impressions Abdomen/Pelvis CT 07/01/162158 Signed Impressions: Service Date/Time: Friday, July 01, 2016 23:27 - CONCLUSION: Negative exam. No acute intraperitoneal or pelvic process to explain current clinical symptoms. Pavel Ray MD Chest X-Ray 07/01/162154 Signed Impressions: Service Date/Time: Friday, July 01, 2016 23:01 - CONCLUSION: No acute cardiopulmonary process. No pneumoperitoneum. Pavel Ray MD Objective Remarks awake and alert, NAD lungs clear regular rhythm abdomen soft, nontender, + right CVA tenderness extremities no edema A/P Problem List: (1) Urinary tract infection ICD Code: N39.0 Status: Acute (2) Intravenous drug user ICD Code: F19.90 Status: Acute (3) Hyponatremia ICD Code: E87.1 Status: Acute Assessment and Plan Sepsis due to E coli - Urinary tract infection in patient with a history of IVDA right Pyelonephritis - blood culture negative for 1 day- ff - recheck CBC today - UA with positive nitrites, trace leukocyte esterase, and many bacteria - Blood cultures pending - Ciprofloxacin 400 mg IV every 12 hours Mild hyponatremia - Initial sodium level 134 IVDA - attempting to quit - Methadone 20 mg daily - encouraged to quit abusing drugs DVT prophylaxis - Lovenox 40 mg subcutaneous every 24 hours - encourage increase activity Problem Qualifiers (1) Urinary tract infection: Qualified Code: N39.0 - Urinary tract infection without hematuria, site unspecified Yaakov Renee MD Jul 03, 2016 10:39
[2016-07-03 15:10] LABS: AUTOMATED NEUTROPHIL # 11.3 TH/MM3 (1.8-7.7); BASOPHIL % 0.3 % (0.0-2.0); EOSINOPHIL # 0.1 TH/MM3 (0-0.4); EOSINOPHIL % 0.8 % (0.0-4.0); HEMATOCRIT 35.9 % (35.0-46.0); HEMO FLAGS DIFF FINAL; LYMPH % 16.4 % (9.0-44.0); LYMPHOCYTE # 2.5 TH/MM3 (1.0-4.8); MEAN CELL VOLUME 86.3 FL (80.0-100.0); MEAN CORPUSCULAR HGB CONC 33.5 % (32.0-36.0); MONO % 7.3 % (0.0-8.0); NEUT % 75.2 % (16.0-70.0); PLATELET COUNT 185 TH/MM3 (150-450); RED BLOOD COUNT 4.16 MIL/MM3 (4.00-5.30); RED CELL DISTRIBUTION WIDTH 14.6 % (11.6-17.2); WHITE BLOOD COUNT 15.1 TH/MM3 (4.0-11.0)
[2016-07-03] MEDS ORDERED: diphenhydrAMINE HCL 50 MG CAP PO PRN (21:00)
[2016-07-04 00:25] VITALS: BP 124/79; PULSE 83; RESP 17; TEMP 97.8; O2SAT 97
[2016-07-04] MEDS: CIPROFLOXACIN 400 MG PREMIX 200 ML IV SCH ×2 (00:57→11:39)
[2016-07-04 05:15] VITALS: BP 117/68; PULSE 84; RESP 17; TEMP 97.2; O2SAT 96
[2016-07-04 08:30] VITALS: BP 114/66; PULSE 77; RESP 17; TEMP 98.4; O2SAT 96
[2016-07-04] MEDS: METHADONE HCL 10 MG TAB PO SCH (09:00)
[2016-07-04] MEDS: ENOXAPARIN SODIUM 40 MG/0.4 ML SYRINGE SQ SCH (09:00)
[2016-07-04] MEDS: SODIUM CHLORIDE 0.9% FLUSH 5 ML FLUSH FLUSH SCH (09:01)
[2016-07-04] MEDS: ACETAMINOPHEN 325 MG TAB PO PRN (11:39)
[2016-07-04 11:50] VITALS: PULSE 76
--- NOTE | 2016-07-04 12:13 | HHI.PR ---
Subjective Remarks feels great no dysuria, no nausea or vomiting Objective Vitals Vital Signs Date Time Temp Pulse Resp B/P Pulse Ox O2 Delivery O2 Flow Rate FiO2 07/04/16 11:50 76 07/04/16 08:30 98.4 77 17 114/66 96 07/04/16 05:15 97.2 84 17 117/68 96 07/04/16 00:25 97.8 83 17 124/79 97 07/03/16 23:00 85 07/03/16 21:00 97.8 92 17 128/83 96 07/03/16 16:20 96.3 85 18 124/90 95 07/03/16 13:19 97.4 86 18 114/74 96 I/O 07/03/16 07/03/16 07/03/16 07/04/16 07/04/16 07/04/16 07:00 15:00 23:00 07:00 15:00 23:00 Intake Total 240 ml 480 ml Balance 240 ml 480 ml Intake Oral 240 ml 480 ml # Voids 2 6 # Bowel Movements 1 Result Diagram: 07/03/16 1355 07/02/16 0340 Imaging Last Impressions Abdomen/Pelvis CT 07/01/162158 Signed Impressions: Service Date/Time: Friday, July 01, 2016 23:27 - CONCLUSION: Negative exam. No acute intraperitoneal or pelvic process to explain current clinical symptoms. Pavel Ray MD Chest X-Ray 07/01/162154 Signed Impressions: Service Date/Time: Friday, July 01, 2016 23:01 - CONCLUSION: No acute cardiopulmonary process. No pneumoperitoneum. Pavel Ray MD Objective Remarks awake and alert, NAD lungs clear regular rhythm abdomen soft, nontender, no CVA tenderness extremities no edema A/P Problem List: (1) Urinary tract infection ICD Code: N39.0 Status: Acute (2) Intravenous drug user ICD Code: F19.90 Status: Acute (3) Hyponatremia ICD Code: E87.1 Status: Acute Assessment and Plan Sepsis due to E coli - Urinary tract infection in patient with a history of IVDA right Pyelonephritis - blood culture negative so far - WBC trended down - blood cultures no growth so far - Ciprofloxacin 400 mg IV every 12 hours - change to po ciprofloxacin Mild hyponatremia - Initial sodium level 134 IVDA - attempting to quit- very motivated - Methadone 20 mg daily - encouraged to quit abusing drugs DC home today OP ff up with PCP diet as tolerated activity as tolerated Med: Ciprofloxacin 500 mg po bid x 7 days Problem Qualifiers (1) Urinary tract infection: Qualified Code: N39.0 - Urinary tract infection without hematuria, site unspecified Yaakov Renee MD Jul 04, 2016 12:13
[2016-07-04 12:18] VITALS: BP 127/65; PULSE 80; RESP 17; TEMP 99.6; O2SAT 95
[2016-07-04] MEDS ORDERED: CIPR500T2 PO (12:18)
[2016-07-04 13:01] LABS: AUTOMATED NEUTROPHIL # 5.2 TH/MM3 (1.8-7.7); BASOPHIL # 0.1 TH/MM3 (0-0.2); BASOPHIL % 0.7 % (0.0-2.0); EOSINOPHIL # 0.2 TH/MM3 (0-0.4); EOSINOPHIL % 2.8 % (0.0-4.0); HEMATOCRIT 32.2 % (35.0-46.0); HEMO FLAGS DIFF FINAL; LYMPHOCYTE # 1.9 TH/MM3 (1.0-4.8); MEAN CELL VOLUME 84.9 FL (80.0-100.0); MEAN CORPUSCULAR HEMOGLOBIN 29.1 PG (27.0-34.0); MEAN CORPUSCULAR HGB CONC 34.3 % (32.0-36.0); MONO % 7.1 % (0.0-8.0); NEUT % 65.4 % (16.0-70.0); PLATELET COUNT 197 TH/MM3 (150-450); RED BLOOD COUNT 3.79 MIL/MM3 (4.00-5.30)
--- NOTE | 2016-09-09 15:08 | HHI.DS ---
Discharge Summary Admission Date Jul 01, 2016 at 23:36 Discharge Date: Jul 04, 2016 Admitting Diagnosis Sepsis, UTI (1) Urinary tract infection ICD Code: N39.0 Diagnosis: Principal (2) Intravenous drug user ICD Code: F19.90 Diagnosis: Principal (3) Hyponatremia ICD Code: E87.1 Diagnosis: Principal Procedures none Brief History - From Admission Ms. Hernández is a 31 year-old female with a history of hepatitis C and IVDA who presented to the ER on 07/01/16 with abdominal pain, UTI symptoms, and subjective fever with nausea and vomiting x 10 episodes. Chest x-ray is negative; CT scan of abdomen and pelvis shows no acute intra-abdominal process. The patient is seen in the emergency room. She states that over the past couple of days she's been having right-sided stomach and back pain and malodorous urine accompanied by chills, nausea, and vomiting. Pain is severe. Emesis is bilious in quality. Denies hematemesis or coffee round emesis, diarrhea, shortness of breath, cough, chest pain, syncope, dizziness. Denies any history of diabetes mellitus, coronary artery disease, heart disease, respiratory problems, liver problems, or kidney problems. Reports recent unintentional overdose on heroin when laced with fentanyl. Has been taking methadone since that time and is currently taking methadone 20 mg by mouth daily which she purchases "on the street" to avoid withdrawal symptoms. She is trying to get off heroin. She is unable to afford to attend the methadone clinic. . Imaging Last Impressions Abdomen/Pelvis CT 07/01/162158 Signed Impressions: Service Date/Time: Friday, July 01, 2016 23:27 - CONCLUSION: Negative exam. No acute intraperitoneal or pelvic process to explain current clinical symptoms. Pavel Ray MD Chest X-Ray 07/01/162154 Signed Impressions: Service Date/Time: Friday, July 01, 2016 23:01 - CONCLUSION: No acute cardiopulmonary process. No pneumoperitoneum. Pavel Ray MD PE at Discharge awake and alert, NAD lungs clear regular rhythm abdomen soft, nontender, no CVA tenderness extremities no edema Hospital Course Sepsis due to E coli - Urinary tract infection in patient with a history of IVDA right Pyelonephritis - blood culture negative so far - WBC trended down - blood cultures no growth so far - Ciprofloxacin 400 mg IV every 12 hours - change to po ciprofloxacin Mild hyponatremia - Initial sodium level 134 IVDA - attempting to quit- very motivated - Methadone 20 mg daily - encouraged to quit abusing drugs DC home today OP ff up with PCP diet as tolerated activity as tolerated Med: Ciprofloxacin 500 mg po bid x 7 days Pt Condition on Discharge: Stable Discharge Disposition: Discharge Home Discharge Time: > 30 minutes Discharge Instructions DIET: Follow Instructions for: As Tolerated, No Restrictions Speech Therapy-Diet Recommends: Regular 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
== END 2016-07-04 15:06 | disposition home or self-care (01) | DRG 872 ==
LOC: NEPC 19:52 → NEDA 23:36 → NEDH 07-02 05:12 → NEDA 07-02 06:48 → NEDH 07-02 13:45 → N05A 07-02 14:50
PROVIDERS: ADMIT Internal Medicine; ATTEND Internal Medicine
DX: A41.51 Sepsis due to Escherichia coli [E. coli] (principal); E87.1 Hypo-osmolality and hyponatremia; N12 Tubulo-interstitial nephritis, not specified as acute or chronic; F11.90 Opioid use, unspecified, uncomplicated; Z72.0 Tobacco use; B19.20 Unspecified viral hepatitis C without hepatic coma
CPT/HCPCS: 71010; 74176; 80048; 80053; 81001; 82550; 83605; 83690; 83735; 83880; 84484; 84703; 85007; 85025; 85027; 85610; 85652; 85730; 87040; 87077; 87086; 87186; 93005; 96374; 96375; J0692; J0744; J3370; J7030; J7050; Q0163